=== PATIENT | female | born 1930 | race Caucasian/White ===

== ENCOUNTER 2017-09-12 15:07 | Observation (INO) ==
--- NOTE | 2017-09-12 15:53 | Emergency Department Note ---
Disposition Clinical Impression: Atypical chest pain Disposition: Admitted As Inpatient Condition: Fair Referrals: Franco Nur MD [Primary Care Provider] - Forms: ED Satisfaction Letter Time of Disposition: 18:42 Chest Pain HPI - General Chief Complaint: ED Chest Pain Stated Complaint: Chest pain Time Seen by Provider: 09/12/17 15:15 Source: patient Limitations: no limitations Vital Signs Reviewed: Yes Nursing Notes Reviewed: Yes - History of Present Illness HPI Narrative: 87-year-old female history of diabetes presents with chest pain. Reports burning sensation in the midsternum to epigastric region that radiates to the back towards left shoulder. She has some associated nausea denies any shortness of breath, diaphoresis, headache or vomiting. Symptoms started at rest around 10 AM. She did note that she had a meal prior around 8 o'clock. History of GERD but this does not feel like it. She presents now because her brother was able to take her here. She denies any history of similar symptoms. Her symptoms have subsided from a 7 of 10 to 3 after taking tramadol. Denies any history of cardiac ischemic disease. She has been having some abdominal discomfort for several days now. She has chronic diarrhea she reports. Denies any abdominal surgeries. Reports a mile cough over the past few days denies any fevers. She has never smoked. Patient reports May 2017 she was diagnosed with a deep vein thrombosis the right leg currently on Xarelto. Pt complaint: chest pain Severity scale (1-10): 3 - Related Data Home Medications Medication Instructions Recorded Confirmed Cholecalciferol (Vitamin D3) 1,000 unit PO BID 08/22/15 09/12/17 [Vitamin D] Insulin NPH, HUMAN [HumuLIN N] 25 unit SQ DAILY 08/22/15 09/12/17 Omeprazole [PriLOSEC] 20 mg PO DAILY 08/22/15 09/12/17 Propranolol LA (24 HR) [Inderal LA] 80 mg PO TID 08/22/15 09/12/17 TraMADol [Ultram] 50 mg PO DAILY PRN 08/22/15 09/12/17 Triamterene/HCTZ 37.5/25mg 1 each PO DAILY 08/22/15 09/12/17 [Dyazide] Calcium Carbonate/Vitamin D3 1 tab PO DAILY 08/27/17 09/12/17 [Calcium 500-Vit D3 200 Caplet] Folic Acid/Multivit-Min/Lutein 1 each PO DAILY 08/27/17 09/12/17 [Adult Multivitamin Gummies] LORazepam [Ativan] 0.5 mg PO HS 08/27/17 09/12/17 Loperamide [Imodium] 2 mg PO Q4HR PRN 08/27/17 09/12/17 Alendronate Sodium 70 mg PO QWEEK 09/12/17 09/12/17 Cholestyramine 4 gm PO BID 09/12/17 09/12/17 Metformin HCl [Glucophage] 1,000 mg PO BID 09/12/17 09/12/17 Oxybutynin Chloride [Ditropan Xl] 10 mg PO DAILY 09/12/17 09/12/17 Rivaroxaban [Xarelto] 15 mg PO DAILY 09/12/17 09/12/17 Allergies Allergy/AdvReac Type Severity Reaction Status Date / Time hydrocodone AdvReac Nausea Verified 09/12/17 18:28 meperidine [From Demerol] AdvReac Dizziness Verified 09/12/17 18:28 Oxycodone AdvReac Nausea Verified 09/12/17 18:28 Sulfa (Sulfonamide AdvReac Rash Verified 09/12/17 18:28 Antibiotics) All systems ED: reviewed and negative except as stated. Review of Systems: As Per HPI Constitutional: Denies: fever, chills ENT ED: Denies: congestion, dysphagia Cardiovascular: Reports: chest pain. Denies: dyspnea on exertion Respiratory: Denies: cough, dyspnea Gastrointestinal: Reports: abdominal pain, nausea. Denies: vomiting, diarrhea Genitourinary: Denies: urgency, dysuria Musculoskeletal: Denies: back pain, neck pain Integumentary: Denies: rash, abrasion Neurological: Denies: headache Chest Pain PMH - Past Medical History Medical history: Reports: diabetes, osteoporosis Surgical history: Reports: hysterectomy, other Psychiatric history: Reports: no psych history - Social History Smoking Status: Former smoker Alcohol use: Reports: none Drug use: Reports: none Physical Exam - General Limitations: no limitations General appearance: alert, in no apparent distress - Head Head exam: atraumatic, normocephalic, normal inspection - Eye Eye exam: Present: normal appearance, PERRL, EOMI - ENT ENT exam: normal exam, normal oropharynx, mucous membranes moist - Neck Neck exam: Present: normal inspection, full ROM, trachea midline - Chest Chest inspection: Present: normal inspection, symmetric chest wall rise. Absent : tenderness - Respiratory Respiratory exam: Present: normal lung sounds bilaterally. Absent: respiratory distress, wheezes - Cardiovascular Cardiovascular exam: Present: regular rate, normal rhythm, normal heart sounds. Absent: systolic murmur, diastolic murmur - Abdominal Exam Abdominal exam: Present: soft, tenderness, normal bowel sounds. Absent: Non- Tender, distention, guarding, rebound, rigidity, Gonzales's sign, Rovsing's sign, tenderness at McBurney's Point Abdominal tenderness: Present: epigastrium - Extremities Exam Extremities exam: Present: normal inspection, full ROM, normal capillary refill. Absent: tenderness - Back Exam Back exam: Present: normal inspection, full ROM. Absent: tenderness, CVA tenderness (R), CVA tenderness (L) - Neurological Exam Neurological exam: Present: alert, oriented X3 - Psychiatric Psychiatric exam: Present: normal affect, normal mood - Skin Skin exam: Present: warm, dry, intact, normal color. Absent: rash, diaphoresis Course Course Narrative: 87-year-old female history of diabetes, former smoker presents with chest pain. Onset 10 o'clock this morning. She continues to have a burning sensation. Pain resolved after nitro. Pain is not reproducible. Abdomen is soft nontender nondistended. Bedside ultrasound performed, gallbladder showed possible stone and sludge. No findings of wall thickening or Minh cholecystic fluid. Unfortunately at this time the chemistry machine is not working. The troponin is 0.01. EKG does not show any acute ischemic findings. Patient has received aspirin here. Patient would benefits admission for chest pain evaluation. She is in agreement with this plan. HEART score 4. Impression is a typical chest pain. Will give her GI cocktail for the burning sensation. - Consultations Consultation #1: Spoke with on-call hospitalist yordan Tejada to admit for chest pain rule out ACS. No further orders at this time Time: 18:45 Vital Signs Temperature 97.7 F 09/12/17 15:14 Pulse Rate 50 09/12/17 15:14 Respiratory Rate 16 09/12/17 15:14 Blood Pressure 136/75 09/12/17 15:14 O2 Sat by Pulse Oximetry 99 09/12/17 15:14 Temperature 97.7 F 09/12/17 15:14 Pulse Rate 55 09/12/17 16:32 Respiratory Rate 16 09/12/17 16:32 Blood Pressure 113/60 09/12/17 16:32 O2 Sat by Pulse Oximetry 96 09/12/17 16:32 Oxygen Delivery Oxygen Delivery Room Air Chest Pain - MDM Narrative Medical decision making narrative: Patient was discussed with my attending physician who agrees with ED management and final disposition. They independently evaluated the patient. Please refer to their attestation to this encounter for additional information. This note was generated by [employer] recognition software and as a result grammatical or spelling errors may occur using this program. - Medical Records Medical records reviewed: Yes I reviewed the patient's medical records. - Lab Data Lab results reviewed: Yes I reviewed the patient's lab results. Result diagrams: 09/12/17 15:59 Lab Results 09/12/17 09/12/17 Range/Units 15:59 15:59 WBC 9.3 (4.3-11.1) K/mcL RBC 4.55 (3.82-4.97) M/mcL Hgb 12.3 (11.5-15.4) g/dL Hct 38.1 (35.3-44.9) % MCV 83.7 (83.0-100.0) fL MCH 27.0 L (28.0-33.3) pg MCHC 32.3 (31.6-35.5) g/dL RDW 14.1 (11.5-14.5) % Plt Count 188 (140-400) K/mcL MPV 9.4 (9.4-12.4) fL Immature Gran % 0.4 (0-4) % Seg Neutrophils % 80.6 % Lymphocytes % 12.6 % Monocytes % 4.1 % Eosinophils % 1.7 % Basophils % 0.6 % Neutrophils # 7.5 (1.6-8.9) K/mcL Lymphocytes # 1.2 (0.6-4.6) K/mcL Monocytes # 0.4 (0.0-1.3) K/mcL Eosinophils # 0.2 (0.0-0.6) K/mcL Basophils # 0.1 (0.0-0.2) K/mcL Troponin I 0.01 (0-0.03) ng/mL - Radiology Data Radiology results reviewed: Yes I reviewed the patient's radiology results. Chest X-Ray 09/12/17 15:15 IMPRESSION: No significant change compared to prior study. No acute cardiopulmonary findings. D/ / 09/12/2017 15:48:51 Home Sotelo MD / wen Interpreting Provider: Home Sotelo MD - EKG Data EKG attestation: Yes I reviewed and interpreted this EKG. EKG results narrative: EKG performed 1512 sinus bradycardia 46 beats per minute, no ST elevations or depression, T wave inversion seen in V2, herbals are within normal limits. Compared to old EKG performed 04/14/2015 shows normal sinus rhythm with similar consistent findings of T wave inversion in V2. No acute ischemic changes. Heart Score - Score History: Moderately Suspicious EKG: Normal Age: Greater than 65 Risk Factors: 1-2 risk factors Troponin: Less than normal limit HEART Score Total: 4
--- NOTE | 2017-09-12 15:56 | Emergency Department Note ---
Disposition Clinical Impression: Atypical chest pain Disposition: Admitted As Inpatient Condition: Fair Referrals: Franco Nur MD [Primary Care Provider] - Forms: ED Satisfaction Letter General Adult HPI - General Chief complaint: ED Chest Pain Stated complaint: Chest pain Time Seen by Provider: 09/12/17 15:15 Source: patient Limitations: no limitations Nursing Notes Reviewed: Yes Vital Signs Reviewed: Yes - History of Present Illness Pain Scale: 3 - Related Data Home Medications Medication Instructions Recorded Confirmed Cholecalciferol (Vitamin D3) 1,000 unit PO BID 08/22/15 08/27/17 [Vitamin D] Insulin NPH, HUMAN [HumuLIN N] 25 unit SQ DAILY 08/22/15 08/27/17 Omeprazole [PriLOSEC] 20 mg PO DAILY 08/22/15 08/27/17 Oxybutynin [Ditropan] 5 mg PO DAILY 08/22/15 08/27/17 Propranolol LA (24 HR) [Inderal LA] 80 mg PO TID 08/22/15 08/27/17 TraMADol [Ultram] 50 mg PO DAILY PRN 08/22/15 08/27/17 Triamterene/HCTZ 37.5/25mg 1 each PO DAILY 08/22/15 08/27/17 [Dyazide] Calcium Carbonate/Vitamin D3 1 tab PO DAILY 08/27/17 [Calcium 500-Vit D3 200 Caplet] Folic Acid/Multivit-Min/Lutein 1 each PO DAILY 08/27/17 [Adult Multivitamin Gummies] LORazepam [Ativan] 0.5 mg PO HS 08/27/17 Loperamide [Imodium] 2 mg PO Q4HR PRN 08/27/17 Previous Rx's Medication Instructions Recorded Rivaroxaban [Xarelto] 15 mg PO 1700 #42 tablet 07/23/17 Allergies Allergy/AdvReac Type Severity Reaction Status Date / Time hydrocodone AdvReac Nausea Verified 07/23/17 07:21 meperidine [From Demerol] AdvReac Dizziness Verified 07/23/17 07:21 Oxycodone AdvReac Nausea Verified 07/23/17 07:21 Sulfa (Sulfonamide AdvReac Rash Verified 07/23/17 07:21 Antibiotics) Past Medical History - Past Medical History Medical history: Reports: diabetes, osteoporosis Surgical history: Reports: hysterectomy, other Psychiatric history: Reports: no psych history - Social History Smoking Status: Former smoker Smokeless Tobacco Status: No Alcohol use: Reports: none Drug use: Reports: none Physical Exam - General Limitations: no limitations General appearance: alert, in no apparent distress Course Vital Signs Temperature 97.7 F 09/12/17 15:14 Pulse Rate 50 09/12/17 15:14 Respiratory Rate 16 09/12/17 15:14 Blood Pressure 136/75 09/12/17 15:14 O2 Sat by Pulse Oximetry 99 09/12/17 15:14 Temperature 97.7 F 09/12/17 15:14 Pulse Rate 55 09/12/17 16:32 Respiratory Rate 16 09/12/17 16:32 Blood Pressure 113/60 09/12/17 16:32 O2 Sat by Pulse Oximetry 96 09/12/17 16:32 Oxygen Delivery Oxygen Delivery Room Air Medical Decision Making - MDM Narrative Medical decision making narrative: I examined this patient and my medical decision-making was reviewed with the Resident Physician. I agree with the documented findings, disposition and treatment plan as described except to the extent set forth below. Patient seen and evaluated by myself and Dr. Alegre, agree with his evaluation and management plan, supervise care the patient's stay. Patient presents today with accommodation of chest and upper abdominal pain. It was a elevated before she got and she took a tramadol now her pain is decreased. She Vomiting here she looks well she is not diaphoretic no pain in the arms or the back currently but she did say she had some pain under her left scapular area earlier. Her urinalysis is a nonsurgical abdomen here. Recheck lab work. And reassess. Chest X-Ray 09/12/17 15:15 IMPRESSION: No significant change compared to prior study. No acute cardiopulmonary findings. D/ / 09/12/2017 15:48:51 Home Sotelo MD / wen Interpreting Provider: Home Sotelo MD This documentation is done with the assistance of [employer] software. Though efforts have been made to ensure accuracy, there may be inaccuracies in heat treater apprentice or spelling or other typographical errors. 1800 hrs.: Patient's labs are coming back and look good. Her troponins negative. Chest x-ray looks good. The labs informed us that there chemistry analyzer is down and may not be back for some time. Pamela talk to the patient about bringing her into the hospital. Impressions chest pain resolved. Rule out ACS. - Lab Data Result diagrams: 09/12/17 15:59 Lab Results 09/12/17 09/12/17 Range/Units 15:59 15:59 WBC 9.3 (4.3-11.1) K/mcL RBC 4.55 (3.82-4.97) M/mcL Hgb 12.3 (11.5-15.4) g/dL Hct 38.1 (35.3-44.9) % MCV 83.7 (83.0-100.0) fL MCH 27.0 L (28.0-33.3) pg MCHC 32.3 (31.6-35.5) g/dL RDW 14.1 (11.5-14.5) % Plt Count 188 (140-400) K/mcL MPV 9.4 (9.4-12.4) fL Immature Gran % 0.4 (0-4) % Seg Neutrophils % 80.6 % Lymphocytes % 12.6 % Monocytes % 4.1 % Eosinophils % 1.7 % Basophils % 0.6 % Neutrophils # 7.5 (1.6-8.9) K/mcL Lymphocytes # 1.2 (0.6-4.6) K/mcL Monocytes # 0.4 (0.0-1.3) K/mcL Eosinophils # 0.2 (0.0-0.6) K/mcL Basophils # 0.1 (0.0-0.2) K/mcL Troponin I 0.01 (0-0.03) ng/mL
[2017-09-12 16:08] LABS: Basophils # 0.1 K/mcL (0.0-0.2); Basophils % 0.6 %; Eosinophils # 0.2 K/mcL (0.0-0.6); Eosinophils % 1.7 %; Hematocrit 38.1 % (35.3-44.9); Hemoglobin 12.3 g/dL (11.5-15.4); Immature Granulocytes % 0.4 % (0-4); Lymphocytes # 1.2 K/mcL (0.6-4.6); Lymphocytes % 12.6 %; Mean Corpuscular HGB Conc 32.3 g/dL (31.6-35.5); Mean Corpuscular Volume 83.7 fL (83.0-100.0); Mean Platelet Volume 9.4 fL (9.4-12.4); Monocytes # 0.4 K/mcL (0.0-1.3); Monocytes % 4.1 %; Neutrophils # 7.5 K/mcL (1.6-8.9); Platelet Count 188 K/mcL (140-400); Red Blood Count 4.55 M/mcL (3.82-4.97); Red Cell Distribution Width 14.1 % (11.5-14.5); Segmented Neutrophils % 80.6 %
[2017-09-12] MEDS: Nitroglycerin 0.4 MG TAB.SUBL SL PRN ×3 (16:27→23:47)
[2017-09-12] MEDS ORDERED: GI Cocktail 40 ML EACH PO ONE (18:03)
[2017-09-12] MEDS ORDERED: Aspirin 81 MG TAB.CHEW PO STA (18:20)
[2017-09-12 18:45] LABS: Bilirubin,Urine Negative (Negative); Blood,Urine Trace (Negative); Clarity,Urine Cloudy (Clear); Color,Urine Yellow (Yellow); Glucose,Urine (UA) Normal (Normal); Ketones,Urine Negative (Negative); Leukocyte Esterase,Urine Moderate (Negative); Nitrite,Urine Positive (Negative); PH,Urine 6.5 pH Units (5.0-8.0); Protein,Urine Negative (Neg-Trace); Specific Gravity,Urine 1.017 (1.010-1.025); Urobilinogen,Urine Normal (Normal)
[2017-09-12 18:47] LABS: Bacteria,Urine Many per hpf (None-Few); Hyaline Casts,Urine None Seen per lpf (None-Few); RBC,Urine 0-3 per hpf (0-3); Squamous Epithelial Cell,Urine Moderate per lpf (None-Few); WBC,Urine 30-50 per hpf (0-3)
[2017-09-12 19:39] LABS: Albumin 3.3 g/dL (3.5-5.0); Albumin/Globulin Ratio 0.9 (1.1-2.2); Bilirubin,Direct 0.2 mg/dL (0.0-0.5); Bilirubin,Indirect 0.3 mg/dL (0.0-1.2); Bilirubin,Total 0.5 mg/dL (0.2-1.2); Calcium 9.6 mg/dL (8.6-10.8); Globulin 3.6 g/dL (2.4-3.5); Potassium 4.4 mEq/L (3.5-4.5); Total Protein 6.9 g/dL (6.0-8.3)
[2017-09-12] MEDS ORDERED: Ondansetron 4 MG/2 ML VIAL IVP PRN (20:44)
[2017-09-12] MEDS ORDERED: Naloxone 0.4 MG/ML INJ IVP PRN (20:44)
[2017-09-12] MEDS ORDERED: *HR* Dextrose 50 % in Water (Syg) 50 ML SYRINGE IVP PRN (20:46)
[2017-09-12] MEDS ORDERED: D5% in Water 1,000 ML IVC PRN (20:46)
[2017-09-12] MEDS ORDERED: Dextrose Gel 15 GM PO PRN ×2 (20:46)
--- NOTE | 2017-09-12 20:52 | Internal Med History&Physical ---
Date of Encounter: 09/12/17 Time of Encounter: 20:50 Assessment and Plan (1) Atypical chest pain Current visit: Yes Status: Acute d/w ED to admit chest pain r/o trend trop stress in a.m THis could be GERD,dyspepsia pain - empiric carafate, PPI (2) Diabetes 1.5, managed as type 1 Current visit: Yes Status: Acute ISS for now (3) VTE (venous thromboembolism) Current visit: Yes Status: Acute hx of VTE on xarelto (4) Bradycardia Current visit: Yes Status: Acute does not appear symptoms but rate on EKG in 40s. Decrease dose from 40 to 80 TID inderal Internal Medicine - H&P: HPI Chief complaint: CP History of present illness: Ms. Gonzalez is a 87 year old female which hx of DMII, HTN, VTE on xarelto who presents with CP eval. Developed CP at 11 a.m this morning while sitting on recliner. Radiate to the stomach, epigastrium and back. Better with cocktail provided in the ED. Some MSK pain along the top of sternum. Due to risk factors with DMII, HTN, ED d/w admission for cardiac CP r/o. Pain last for hours but has resolved on interview at bedside. EKG personally reviewed with rate 46, sinus jay XR/XR chest 1V portable IMPRESSION: No significant change compared to prior study. No acute cardiopulmonary findings. Past Med Surg Social Fam HX - Past Medical History Medical history: arthritis, diabetes, osteoporosis, other Psychiatric history: no psych history - Past Surgical History Surgical History: hysterectomy, other - Social History Smoking Status: Former smoker Smokeless Tobacco Status: No Alcohol use: none Drug use: none - Family History Father Age: 55 Living Status: Cause of : stroke Internal Medicine - H&P: Meds Cholecalciferol (Vitamin D3) [Vitamin D] 1,000 unit PO BID 08/22/15 [History] Insulin NPH, HUMAN [HumuLIN N] 25 unit SQ DAILY 08/22/15 [History] Omeprazole [PriLOSEC] 20 mg PO DAILY 08/22/15 [History] Propranolol LA (24 HR) [Inderal LA] 80 mg PO TID 08/22/15 [History] TraMADol [Ultram] 50 mg PO DAILY PRN 08/22/15 [History] Triamterene/HCTZ 37.5/25mg [Dyazide] 1 each PO DAILY 08/22/15 [History] Calcium Carbonate/Vitamin D3 [Calcium 500-Vit D3 200 Caplet] 1 tab PO DAILY [History] Folic Acid/Multivit-Min/Lutein [Adult Multivitamin Gummies] 1 each PO DAILY [History] Loperamide [Imodium] 2 mg PO Q4HR PRN 08/27/17 [History] Oxybutynin Chloride [Ditropan Xl] 10 mg PO DAILY 09/12/17 [History] Rivaroxaban [Xarelto] 15 mg PO DAILY 09/12/17 [History] 3 Allergy/AdvReac Type Severity Reaction Status Date / Time acetaminophen [From Endocet] AdvReac Nausea Verified 09/12/17 20:47 ampicillin AdvReac Nausea Verified 09/12/17 20:47 hydrocodone AdvReac Nausea Verified 09/12/17 18:28 meperidine [From Demerol] AdvReac Dizziness Verified 09/12/17 18:28 Oxycodone AdvReac Nausea Verified 09/12/17 18:28 Sulfa (Sulfonamide AdvReac Rash Verified 09/12/17 18:28 Antibiotics) All Systems PM: A 10-system review of systems was performed and is negative for pertinent findings except as documented above in the HPI. Review of systems: ROS 14 point review of systems reviewed as best as possible given presentation. Pertinent positive or negative as per HPI or otherwise reviewed as negative - Constitutional Vitals: Temp Pulse Resp BP Pulse Ox 98.2 F 55 16 113/57 97 09/12/17 20:15 09/12/17 20:15 09/12/17 20:15 09/12/17 20:15 09/12/17 20:15 Exam: General - AAO x 3 Psych - Appropriate affect/speech. No agitation Eyes - CRAIG. Eye lids intact. No scleral icterus Heart - Sinus. RRR. S1 and S2 present. No added HS/murmurs appreciated. No elevated JVD appreciated. Lung - Adequate air entry b/l, No crackles/wheezes appreciated GI - Soft, non-tender. No hepatosplenomegaly/ascites. BS+ - No CVA/suprapubic tenderness or palpable bladder distension Skin - Intact. No rash/petechiae/ecchymosis. Warm extremities Internal Med - H&P Results - Labs CBC & Chem 7: 09/12/17 15:59 09/12/17 15:59
[2017-09-12] MEDS ORDERED: traMADol 50 MG TABLET PO PRN (20:55)
[2017-09-12] MEDS ORDERED: Insulin LISPRO 300 UNITS/3 ML VIAL SQ SCH (21:00)
[2017-09-12] MEDS: Sucralfate 1 GM TABLET PO SCH (22:45)
[2017-09-12] MEDS: Propranolol LA (24 HR) 60 MG CAP.SA.24H PO SCH (22:45)
[2017-09-13] MEDS ORDERED: 0.9 % Sodium Chloride 500 ML ONE (00:05)
[2017-09-13] MEDS ORDERED: 0.9 % Sodium Chloride 500 ML IVC ONE (00:06)
[2017-09-13 05:01] LABS: Basophils % 0.5 %; Eosinophils # 0.1 K/mcL (0.0-0.6); Hematocrit 35.8 % (35.3-44.9); Hemoglobin 11.7 g/dL (11.5-15.4); Immature Granulocytes % 0.5 % (0-4); Lymphocytes % 11.3 %; Mean Corpuscular HGB Conc 32.7 g/dL (31.6-35.5); Mean Corpuscular Hemoglobin 27.5 pg (28.0-33.3); Mean Platelet Volume 10.8 fL (9.4-12.4); Monocytes # 0.4 K/mcL (0.0-1.3); Monocytes % 4.6 %; Neutrophils # 7.2 K/mcL (1.6-8.9); Nucleated Red Blood Cells 0.2 /100 WBC (0); Platelet Count 170 K/mcL (140-400); Red Blood Count 4.26 M/mcL (3.82-4.97); Red Cell Distribution Width 14.5 % (11.5-14.5); Segmented Neutrophils % 82.1 %
[2017-09-13 05:04] LABS: BUN/Creatinine Ratio 16 (6-26); Blood Urea Nitrogen 16 mg/dL (7-20); Calcium 8.9 mg/dL (8.6-10.8); Chloride 104 mEq/L (98-109); Glucose 196 mg/dL (70-99); Osmolality,Calculated 293 (280-300); Potassium 4.2 mEq/L (3.5-4.5); Sodium 138 mEq/L (136-145); eGFR For African Americans > 60 (> 60); eGFR For Non-African Americans 53 (> 60)
[2017-09-13 05:08] LABS: Carbon Dioxide 21 mEq/L (19-29)
[2017-09-13] MEDS ORDERED: Regadenoson 0.4 MG/5 ML SYRINGE IVP ONE (06:25)
[2017-09-13] MEDS ORDERED: Multivit/Ca/Min/Fe/FA 1 TAB TABLET PO SCH (09:00)
[2017-09-13] MEDS ORDERED: Cholecalciferol (D-3) 1,000 UNIT TABLET PO SCH (09:00)
[2017-09-13] MEDS: Sucralfate 1 GM TABLET PO SCH ×3 (09:36→15:40)
[2017-09-13] MEDS: Propranolol LA (24 HR) 60 MG CAP.SA.24H PO SCH ×2 (09:37→15:40)
--- NOTE | 2017-09-13 09:51 | Internal Med Progress Note ---
Date of Encounter: 09/13/17 Time of Encounter: 09:00 - Assessment and plan (1) Atypical chest pain Current Visit: Yes Status: Acute Assessment and plan: Patient initially presented of chest pain described as a burning sensation in the midsternal to epigastric region. Troponin was negative, EKG did not show any ischemic findings. Patient was given a GI cocktail upon presentation for burning sensation. Chest x-ray showed no acute abnormalities. Plan: -Trend troponin -Stress test this morning -Echocardiogram scheduled for this morning -Zofran 4 mg IV every 8 hours when necessary -Carafate 1 g by mouth 4 times a day before meals. -Continuous cardiac monitoring. (2) UTI (urinary tract infection) Current Visit: Yes Status: Acute Assessment and plan: Patient's initial urinalysis was positive for nitrates and many urine bacteria. -Patient did not have any urinary symptoms such as frequency, urgency, or burning. -Urine culture has been obtained; results pending. (3) Bradycardia Current Visit: Yes Status: Acute Assessment and plan: Patient's heart rate on EKG was in the 40s. -Patient's Inderal was decreased from 80 to 40 3 times a day. -Patient's pulse this morning was 61 bpm. -Patient's bradycardia was asymptomatic, did not demonstrate any signs of hemodynamic compromise. (4) Diabetes 1.5, managed as type 1 Current Visit: Yes Status: Acute Assessment and plan: Insulin sliding scale. Patient's glucose this morning was 196. (5) VTE (venous thromboembolism) Current Visit: Yes Status: Acute Assessment and plan: Patient had a DVT on June 08 in the right leg. Patient is currently on Xarelto. - Subjective Interval history: Patient is an 87-year-old female who presented on 09/12/17 with a chief complaint of chest pain. Patient had a burning sensation in the midsternal epigastric region, radiating to the back towards the left shoulder. She also complained of some nausea on presentation. Her symptoms started at rest at approximately 10 AM on day of presentation. She had a meal at approximately 8: 00 that day. Patient has a known history of GERD. She states the pain is different from discomfort typical of her condition. Her symptoms were improved after taking tramadol. She is no history of cardiac ischemic disease. She also admits having several days of abdominal discomfort, as well as chronic diarrhea. Denies having any abdominal surgeries. Patient had a DVT on June 08 in the right leg. Currently on Xarelto. Pain was resolved after taking nitroglycerin. Pain is not reproducible. Bedside u/s was performed; gallbladder showed possible stone and sludge. There was no wall thickening or pericholecystic fluid. Her troponin was 0.01. EKG did not show any ischemic findings. Patient was given a GI cocktail for burning sensation. Vital signs were within normal limits. Chest x-ray was performed; showed no significant change compared to prior study. There were no acute cardiopulmonary findings. Patient was seen and examined up with this morning. Patient says that she does not have any chest pain or shortness of breath. Her initial symptoms completely resolved. She denies having any cough, fever, chills, or reflux. Patient is in no acute distress and has no complaints at this time. - Constitutional Vitals: Temp Pulse Resp BP Pulse Ox 97.8 F 61 16 99/48 95 09/13/17 03:24 09/13/17 03:24 09/13/17 03:24 09/13/17 03:24 09/13/17 03:24 Internal Medicine: Result - Labs CBC & Chem 7: 09/13/17 03:11 09/13/17 03:11 Labs: Short CBC 09/13/17 Range/Units 03:11 WBC 8.7 (4.3-11.1) K/mcL Hgb 11.7 (11.5-15.4) g/dL Hct 35.8 (35.3-44.9) % Plt Count 170 (140-400) K/mcL Neutrophils # 7.2 (1.6-8.9) K/mcL BMP 09/13/17 03:11 Sodium 138 Potassium 4.2 Chloride 104 Carbon Dioxide 21 BUN 16 Creatinine 1.00 Glucose 196 H Calcium 8.9 Cardiac Enzymes 09/12/17 09/13/17 Range/Units 21:10 03:11 Troponin I 0.01 0.01 (0-0.03) ng/mL Consult Discharge Plan - Plan Referrals: Franco Nur MD [Primary Care Provider] -
[2017-09-13] MEDS: Insulin LISPRO 300 UNITS/3 ML VIAL SQ SCH ×3 (09:59→17:02)
[2017-09-13 11:30] VITALS: BP 103/59
--- NOTE | 2017-09-13 12:53 | Discharge Summary ---
<Soren Doe - Last Filed: 09/13/17 13:01> Date of Encounter: 09/13/17 Time of Encounter: 08:30 - Discharge Diagnosis (1) Atypical chest pain Priority: Primary Status: Acute (2) UTI (urinary tract infection) Priority: Primary Status: Acute Comments: Patient will be sent home on nitrofurantoin 100 mg by mouth twice a day for 3 days. Qualifiers: Qualified Code(s): N39.0 - Urinary tract infection, site not specified; R31.9 - Hematuria, unspecified; R31.9 - Hematuria, unspecified (3) Bradycardia Priority: Secondary Status: Acute (4) Diabetes 1.5, managed as type 1 Priority: Secondary Status: Acute (5) VTE (venous thromboembolism) Priority: Secondary Status: Acute - Discharge Medications Prescriptions: Nitrofurantoin (BID) [Macrobid] 100 mg PO BID #6 capsule Home Medications: Cholecalciferol (Vitamin D3) [Vitamin D] 1,000 unit PO BID 08/22/15 [History] Insulin NPH, HUMAN [HumuLIN N] 25 unit SQ DAILY 08/22/15 [History] Omeprazole [PriLOSEC] 20 mg PO DAILY 08/22/15 [History] Propranolol LA (24 HR) [Inderal LA] 80 mg PO TID 08/22/15 [History] TraMADol [Ultram] 50 mg PO DAILY PRN 08/22/15 [History] Triamterene/HCTZ 37.5/25mg [Dyazide] 1 each PO DAILY 08/22/15 [History] Calcium Carbonate/Vitamin D3 [Calcium 500-Vit D3 200 Caplet] 1 tab PO DAILY [History] Folic Acid/Multivit-Min/Lutein [Adult Multivitamin Gummies] 1 each PO DAILY [History] Loperamide [Imodium] 2 mg PO Q4HR PRN 08/27/17 [History] Oxybutynin Chloride [Ditropan Xl] 10 mg PO DAILY 09/12/17 [History] Rivaroxaban [Xarelto] 15 mg PO DAILY 09/12/17 [History] Nitrofurantoin (BID) [Macrobid] 100 mg PO BID #6 capsule 09/13/17 [Rx] Allergies/Adverse Reactions: 3 Allergy/AdvReac Type Severity Reaction Status Date / Time acetaminophen [From Endocet] AdvReac Nausea Verified 09/12/17 20:47 ampicillin AdvReac Nausea Verified 09/12/17 20:47 hydrocodone AdvReac Nausea Verified 09/12/17 18:28 meperidine [From Demerol] AdvReac Dizziness Verified 09/12/17 18:28 Oxycodone AdvReac Nausea Verified 09/12/17 18:28 Sulfa (Sulfonamide AdvReac Rash Verified 09/12/17 18:28 Antibiotics) Procedures/tests Complete & Pending: Procedures Performed prior 72 hours Category Date Time Status NM deacon perf SPECT multi [NM] Routine Exams 09/12/17 20:49 Taken ECG 12 lead ECG [ECG] Stat Y 09/12/17 23:36 Ordered EV echocardiogram Routine Y 09/13/17 23:43 Completed SP pharm nuclear stress Routine Y 09/13/17 08:00 Completed Date of admission: 09/12/17 18:45 Primary care physician: Franco Nur MD Consults: 09/12/17 20:26 Consult to Nutrition [CONS] Routine Comment: Consulting Provider: NUTRITION Reason for Dietary Consult: MST Score Discharging clinician: Soren Doe Anticipated date of discharge: 09/13/17 - Patient Status Disposition: Home, Self-Care Condition: Fair Overall status at discharge: patient is progressing back to baseline - Discharge Instructions Instructions: Chest Pain (DC), Urinary Tract Infection in Women (DC), Diabetes Mellitus Type 2 in Adults (DC) Follow Up With: Franco Nur MD [Primary Care Provider] - - Diet and Activity Activity: increase activity as tolerated Diet: advance to your usual diet Hospital course: Ms. Gonzalez is a 87 year old female who presented on 09/12/17 with a chief complaint of chest pain. Patient had a burning sensation in the midsternal epigastric region, radiating to the back towards the left shoulder. She also complained of some nausea on presentation. Her symptoms started at rest at approximately 10 AM on day of presentation. She had a meal at approximately 8: 00 that day. Patient has a known history of GERD. She states the pain is different from discomfort typical of her condition. Her symptoms were improved after taking tramadol. She is no history of cardiac ischemic disease. She also admits having several days of abdominal discomfort, as well as chronic diarrhea. Denies having any abdominal surgeries. Patient had a DVT on June 08 in the right leg. Currently on Xarelto. Pain was resolved after taking nitroglycerin. Pain is not reproducible. Bedside u/s was performed; gallbladder showed possible stone and sludge. There was no wall thickening or pericholecystic fluid. Her troponin was 0.01. EKG did not show any ischemic findings. Patient was given a GI cocktail for burning sensation. Vital signs were within normal limits. Chest x-ray was performed; showed no significant change compared to prior study. There were no acute cardiopulmonary findings. Patient was given a GI cocktail, and no burning sensation in her chest pain was present thereafter. She was given Zofran, Carafate, and was placed on continuous cardiac monitoring. No abnormalities were detected during her stay. Both stress test and echocardiogram were performed. Patient's stress test was unremarkable. Pending results of echocardiogram, patient will be able to be discharged today. Patient was seen and examined up with this morning. Patient says that she does not have any chest pain or shortness of breath. Her initial symptoms completely resolved. She denies having any cough, fever, chills, or reflux. Patient is in no acute distress and has no complaints at this time. Patient's initial urinalysis was positive for nitrates and many urine bacteria. She did not have any urinary symptoms such as frequency, urgency, or burning. Urine culture was obtained. Patient will be sent home on nitrofurantoin 100 mg by mouth twice a day for 3 days. - Time Spent with Patient Total time spent providing and/or coordinating discharge services: Greater than 30 minutes (41 minutes) - Constitutional Vitals: Temp Pulse Resp BP Pulse Ox 97.9 F 58 16 103/59 96 09/13/17 11:13 09/13/17 11:13 09/13/17 11:13 09/13/17 11:13 09/13/17 11:13 General appearance: Present: A&O X 3, answers questions appropriately - Head Head exam: Present: atraumatic, normocephalic - Eye Eye exam: Present: PERRL, conjuntiva pink, sclera anicteric Pupils: Present: PERRL - Neck Neck exam general surgery: Present: supple, trachea midline. Absent: lymphadenopathy - Respiratory Respiratory exam: Present: CTAB. Absent: accessory muscle use, rales, rhonchi, wheezes - Cardiovascular Cardiovascular exam: Present: RRR, +S1, +S2. Absent: diastolic murmur, gallop, rubs, systolic murmur - Skin Skin exam: Present: dry, intact <Jf Suarez T - Last Filed: 09/13/17 15:36> Date of Encounter: 09/13/17 Procedures/tests Complete & Pending: Procedures Performed prior 72 hours Category Date Time Status NM deacon perf SPECT multi [NM] Routine Exams 09/12/17 20:49 Taken ECG 12 lead ECG [ECG] Stat Y 09/12/17 23:36 Ordered EV echocardiogram Routine Y 09/13/17 23:43 Completed SP pharm nuclear stress Routine Y 09/13/17 08:00 Completed Date of admission: 09/12/17 18:45 Primary care physician: Franco Nur MD Consults: 09/12/17 20:26 Consult to Nutrition [CONS] Routine Comment: Consulting Provider: NUTRITION Reason for Dietary Consult: MST Score Hospital course: Ms. Gonzalez is a 87 year old female - Time Spent with Patient Total time spent providing and/or coordinating discharge services: - Constitutional Vitals: Temp Pulse Resp BP Pulse Ox 97.9 F 58 16 103/59 96 09/13/17 11:13 09/13/17 11:13 09/13/17 11:13 09/13/17 11:13 09/13/17 11:13 - Attending Attestation Seen and examined with resident physician on 09/13/17 Admitted for atypical chest pain troponin, stress test and ECHO negative Incidental Gram negative UTI Stable to discharge home on nitrofurantoin. Rest as in resident physician's documentation
--- NOTE | 2017-09-13 13:38 | Electrocardiograph Report ---
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
[2017-09-13] MEDS ORDERED: *HR* Rivaroxaban 15 MG TABLET PO SCH (17:00)
--- NOTE | 2017-09-15 10:37 | Event Note ---
<Mark Villagomez J - Last Filed: 09/15/17 10:35> Date of Encounter: 09/15/17 Time of Encounter: 10:35 Sent home on macrobid for UTI, Serratia, Marcescens resistant to macrobid. Allergies to sulfa meds; so order for Levaquin called 750mg PO 1 tab QDx5 days. <Jf Suarez - Last Filed: 09/15/17 13:11> Date of Encounter: 09/15/17 Reviewed and agree with KRISTINA Flores
--- NOTE | 2017-09-16 22:33 | Electrocardiograph Report ---
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
--- NOTE | 2017-09-16 22:42 | Electrocardiograph Report ---
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
== END 2017-09-13 17:30 | disposition home or self-care (01) ==
LOC: EMEROO 15:07 → 2ANU 15:07
PROVIDERS: ADMIT Internal Medicine Hematology & Oncology; ATTEND Internal Medicine